=== PATIENT | female | born 1945 | race Caucasian/White ===

== ENCOUNTER 2020-10-21 14:02 | Outpatient (RCR) | payer OTHER, SELFPAY | END 2021-01-06 14:29 | disposition home or self-care (01) | LOC: HO.WCC 14:02 | PROVIDERS: PCP Family Medicine; Visit Provider Physician Assistant | DX: I70.234 Atherosclerosis of native arteries of right leg with ulceration of heel and midfoot (principal); L97.412 Non-pressure chronic ulcer of right heel and midfoot with fat layer exposed; L93.0 Discoid lupus erythematosus; I87.2 Venous insufficiency (chronic) (peripheral); E78.00 Pure hypercholesterolemia, unspecified; Z87.891 Personal history of nicotine dependence; Z79.899 Other long term (current) drug therapy | CPT/HCPCS: 11042; 15271; 97597; 97602; 99211; 99212; Q4186 ==

== ENCOUNTER 2020-12-10 13:09 | Outpatient (REF) | payer OTHER, SELFPAY ==
--- NOTE | 2020-12-10 | US_ITS ---
EXAMINATION: EXAMINATION: COLOR-FLOW DUPLEX IMAGING OF THE UNILATERAL LOWER EXTREMITY ARTERIAL SYSTEM. VELOCITY MEASUREMENTS THROUGHOUT THE FEMORAL ARTERIES CLINICAL INFORMATION: This is a 75-year-old female with chronic ulcer of the right heel. Atherosclerotic disease. Peripheral arterial disease. Interventional Radiologist: Klaus Gonzáles M.D., F.S.I.R., F.A.C.R. RIGHT FEMORAL RUNOFF VELOCITIES: The right common femoral artery measures 120 cm/s and biphasic. The right profunda femoral artery is 97 cm/s and is biphasic. Right proximal superficial femoral artery measures 112 cm/s and biphasic. Mid superficial femoral artery is 105 cm/s and biphasic. Distal right superficial femoral artery measures 84 cm/s and is biphasic. Right popliteal velocity measures 75 cm/s and is biphasic. The posterior tibial artery velocity measures 103 cm/s and was biphasic. US/US arterial duplex LE RT IMPRESSION: 1. There is scattered atherosclerotic disease without evidence of focal hemodynamically significant stenosis.
== END 2020-12-10 13:10 | disposition home or self-care (01) ==
LOC: HO.US 13:09
PROVIDERS: Visit Provider Physician Assistant
DX: I70.232 Atherosclerosis of native arteries of right leg with ulceration of calf (principal); L97.412 Non-pressure chronic ulcer of right heel and midfoot with fat layer exposed
CPT/HCPCS: 93926